=== PATIENT | female | born 1960 | race Two or more races ===

== ENCOUNTER → 2022-03-31 | Outpatient (CLI) | payer OTHER | END | disposition home or self-care (01) | LOC: NUCLEAR 14:00 | DX: M81.0 Age-related osteoporosis without current pathological fracture (principal) ==

== ENCOUNTER 2022-04-03 09:34 | Outpatient (CLI) | payer OTHER | END 2022-04-03 09:48 | disposition home or self-care (01) | LOC: MAMO-SONO 09:34 | PROVIDERS: ATTEND Obstetrics & Gynecology | DX: N60.11 Diffuse cystic mastopathy of right breast (principal) ==

== ENCOUNTER 2022-04-17 08:05 | Outpatient (CLI) | payer OTHER | END 2022-04-17 08:24 | disposition home or self-care (01) | LOC: TOM 08:05 | PROVIDERS: ATTEND Otolaryngology | DX: R22.1 Localized swelling, mass and lump, neck (principal) ==

== ENCOUNTER 2022-07-04 11:45 | Emergency (ER) | payer OTHER ==
[~2022-07-04] VITALS: Ht 165.1 cm; Wt 62.6 kg
[2022-07-04] MEDS ORDERED: PAXLOVID 300-11 EACH PO (16:17)
== END 2022-07-04 16:25 | disposition home or self-care (01) ==
LOC: ER 11:45
DX: U07.1 COVID-19 (principal)

== ENCOUNTER 2023-03-30 09:31 | Outpatient (CLI) | payer OTHER ==
[~2023-03-30 09:31] MED LIST: PAXLOVID 300-11 EACH PO
== END 2023-03-30 09:43 | disposition home or self-care (01) ==
LOC: SONOGRAMA 09:31
PROVIDERS: ATTEND Otolaryngology
DX: R22.1 Localized swelling, mass and lump, neck (principal)

== ENCOUNTER 2023-05-07 08:23 | Outpatient (CLI) | payer OTHER | END 2023-05-07 08:26 | disposition home or self-care (01) | LOC: SONOGRAMA 08:23 | PROVIDERS: ATTEND Pathology Anatomic Pathology & Clinical Pathology | DX: D37.032 Neoplasm of uncertain behavior of the submandibular salivary glands (principal); R22.1 Localized swelling, mass and lump, neck ==